=== PATIENT | female | born 1990 | race Caucasian/White ===

== ENCOUNTER 2016-11-20 17:02 | Emergency (ER) | payer BC, OTHER ==
[~2016-11-20] VITALS: Ht 154.9 cm; Wt 81.1 kg
[~2016-11-20 17:02] MED LIST: ACET-1256 PO; ADVIN25/60 INH; AZIT250T PO; CYM30 PO; DICY10CA12 PO; DSY50 PO; DULO60CA44 PO; HYDR5TAB57 PO; KLN1X PO; LEVE500T PO; LEVO75TA5 PO; NRN600 PO; OXYC1TAB3 PO; PRENTAB26 PO
[2016-11-20 17:07] VITALS: Ht 154.9 cm; Wt 81.1 kg
[2016-11-20] MEDS ORDERED: KETOROLAC TROMETHAMINE 30 MG/ML VIAL IV STA (17:29)
[2016-11-20] MEDS ORDERED: TRAM-10 PO (17:35)
[2016-11-20 18:10] LABS: BASO % 0.4 %; BASO ABS # 0.04 K/uL (0-0.2); COMPLETE YES; EOS % 1.3 %; HEMATOCRIT 44.3 % (37-47); IG% 0.2 %; LYMPH % 35.1 %; MEAN CELL VOLUME 84.2 fL (80-100); MEAN CORPUSCULAR HEMOGLOBIN 29.8 pg (25-34); MEAN CORPUSCULAR HGB CONC 35.4 g/dl (32-36); MEAN PLATELET VOLUME 11.6 fL (7.4-10.4); MONO % 3.8 %; NEUT % 59.2 %; PLATELET COUNT 300 K/uL (130-400); RED BLOOD COUNT 5.26 M/uL (4.2-5.4); WHITE BLOOD COUNT 9.68 K/uL (4.8-10.8)
[2016-11-20 18:13] LABS: URINE APPEARANCE CLOUDY (CLEAR); URINE BILIRUBIN NEG (NEG); URINE COLOR YELLOW; URINE EPITHELIAL CELL AUTO >30 /lpf (0-5); URINE NITRITE NEG (NEG); URINE PH 6.5 (4.5-7.5); URINE SPECIFIC GRAVITY 1.022 (1.000-1.030); UROBILINOGEN NEG (NEG); ZZUR CULT IF INDIC CLEAN CATCH NO
[2016-11-20 18:14] LABS: MANUAL MICROSCOPIC REQUIRED? NO; REVIEW REQ? YES
[2016-11-20 18:31] LABS: ALB/GLOB RATIO 1.1 (0.9-2); BUN/CREATININE RATIO 8.8 (10-20); CALCIUM 8.7 mg/dl (8.5-10.1); CREATININE 0.77 mg/dl (0.60-1.20); POTASSIUM 4.3 mmol/L (3.5-5.1)
--- NOTE | 2016-11-20 18:54 | DIAGNOSTIC IMAGING REPORT ---
EXAMINATION: PELVIC ULTRASOUND CLINICAL HISTORY: pelvic pain, hx of ovarian cysts COMPARISON STUDY: 03/21/2016 FINDINGS: The uterus measured 5.3 cm. The endometrial stripe measured 7 mm. The right ovary measured 3.0 cm. 1.8 cm complex right ovarian cyst.. The left ovary measured 2.6 cm maximum dimension. Normal vascular flow.. There is no ultrasonographic evidence of ovarian torsion. It should be noted that ovarian torsion can be present with normal Doppler ultrasonographic findings. There was no evidence of pathologic free pelvic fluid. IMPRESSION: 1.8 cm complex right ovarian cyst. Otherwise negative study Electronically signed by: Clemente Arriaga M.D. 11/20/2016 6:53 PM Dictated Date/Time: 11/20/2016 6:51 PM
[2016-11-20] MEDS ORDERED: TYLENOL #3 HOME PACK PO ONE (19:30)
[2016-11-20] MEDS ORDERED: ACET-749 PO (19:39)
--- NOTE | 2016-11-20 19:41 | EMERGENCY ROOM VISIT NOTE ---
History First contact with patient: 17:12 Chief Complaint: PELVIC PAIN Stated Complaint: PELVIC PAIN, LOWER BACK PAIN RADIATES TO THIGH History of Present Illness The patient is a 26 year old female who presents to the Emergency Room with complaints of pelvic pain for the past 3-4 days. The patient reports that she has pain in her right lower abdomen which radiates into the back and into her upper thighs. She states she has had symptoms like this before when she has had ovarian cysts. She has been taking ibuprofen for the pain without relief. She rates her discomfort a 7/10. She states the symptoms significantly worsened over the past day, prompting her to come here for evaluation. She denies any associated nausea/vomiting or urinary symptoms. She denies any vaginal discharge or bleeding. She states that she does not have regular menstrual periods, but did take a test 2 weeks ago and it was negative. She follows up with [facility] RESOURCE DIRECTOR. She denies any recent illness or fevers/chills. Review of Systems A complete 10-point Review of Systems was discussed with the patient, with pertinent positives and negatives listed in the History of Present Illness. All remaining Review of Systems questions can be considered negative unless otherwise specified. 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 (18) Leukocytosis, Unspecified (19) Meningitis (20) Opioid dependence (21) Panic (22) Pelvic pain (23) Vaginal bleeding (24) Vomiting Surgical Problems: (1) VERTICAL BORER (ventriculoperitoneal) shunt status Family History Diabetes mellitus FH: cancer FH: gallbladder disease FH: heart disease FH: lung disease Hypertension Kidney disease Kidney stones Seizures Social History Smoking Status: Current Every Day Smoker Alcohol Use: none Drug Use: none Marital Status: in relationship Housing Status: lives with family Occupation Status: unemployed Current/Historical Medications Scheduled Duloxetine HCl (Duloxetine HCl), 30 MG PO DAILY Duloxetine Hcl (Cymbalta), 60 MG PO DAILY Fluticasone Prop/Salmeterol (Advair Diskus 250/50 60 Dose), 1 PUFFS INH BID Gabapentin (Gabapentin), 600 MG PO TID Hydrocortisone (Cortef), 5 MG PO TID Levetiractam (Levetiracetam), 500 MG PO BID Levothyroxine Sodium (Levothyroxine Sodium), 75 MCG PO DAILY Multivit/Min/Iron/Fol Ac/Pren ( Vitamin), 1 TAB PO DAILY Trazodone HCl (Trazodone HCl), 50-100 MG PO HS Scheduled PRN Acetaminophen (Tylenol), 1,000 MG PO Q6H PRN for Pain Acetaminophen/Codeine (Tylenol W/Codeine #3), 1-2 TABS PO Q6H PRN for Pain Clonazepam (Clonazepam), 1 MG PO DAILY PRN for Anxiety Dicyclomine Hcl (Dicyclomine Hcl), 10 MG PO BID PRN for IBS Tramadol (Ultram), 50-100 MG PO Q6 PRN for Pain Allergies Coded Allergies: Lactose (Verified Adverse Reaction, Intermediate, LACTOSE INTOLERANT, 07/23) Morphine (Verified Adverse Reaction, Unknown, "mean" and "irriatible", 07/23/16) Tramadol (Verified Adverse Reaction, Unknown, hx of seizures, told by neuologist to avoid, 07/23/16) Uncoded Allergies: DERMABOND (Allergy, Mild, BURNT SKIN, 07/17/15) Physical Exam Vital Signs Date Time Temp Pulse Resp B/P Pulse Ox O2 Delivery O2 Flow Rate FiO2 11/20/16 19:50 36.8 81 18 128/79 98 11/20/16 19:29 81 18 128/79 98 Room Air 11/20/16 17:07 36.8 86 18 135/80 98 Room Air Physical Exam VITALS: Vitals are noted on the nurse's note and reviewed by myself. Vital signs stable. GENERAL: This is a 26-year-old female, in no acute distress, nondiaphoretic, well-developed well-nourished. SKIN: Capillary reflex less than 2 seconds. HEENT: Normocephalic. PERRLA. EOMI. Nares patent. Mucous membranes moist. Neck is supple without nuchal rigidity. HEART: Regular rate and rhythm without murmurs gallops or rubs. LUNGS: Clear to auscultation bilaterally without wheezes, rales or rhonchi. No retractions or accessory muscle use. ABDOMEN: Positive bowel sounds x 4. Moderate tenderness to palpation over the right lower quadrant and suprapubic region. PELVIC: External genitalia unremarkable. There is a small amount of chunky white discharge within the vaginal vault. This does have a foul odor. NEURO: Patient was alert and oriented to person place and time. Medical Decision & Procedures ER Provider Diagnostic Interpretation: EXAMINATION: PELVIC ULTRASOUND CLINICAL HISTORY: pelvic pain, hx of ovarian cysts COMPARISON STUDY: 03/21/2016 FINDINGS: The uterus measured 5.3 cm. The endometrial stripe measured 7 mm. The right ovary measured 3.0 cm. 1.8 cm complex right ovarian cyst.. The left ovary measured 2.6 cm maximum dimension. Normal vascular flow.. There is no ultrasonographic evidence of ovarian torsion. It should be noted that ovarian torsion can be present with normal Doppler ultrasonographic findings. There was no evidence of pathologic free pelvic fluid. IMPRESSION: 1.8 cm complex right ovarian cyst. Otherwise negative study Laboratory Results 11/20/16 18:00 Red Blood Count 5.26, Mean Corpuscular Volume 84.2, Mean Corpuscular Hemoglobin 29.8, Mean Corpuscular Hemoglobin Concent 35.4, Mean Platelet Volume 11.6, Neutrophils (%) (Auto) 59.2, Lymphocytes (%) (Auto) 35.1, Monocytes (%) (Auto) 3.8, Eosinophils (%) (Auto) 1.3, Basophils (%) (Auto) 0.4, Neutrophils # (Auto) 5.72, Lymphocytes # (Auto) 3.40, Monocytes # (Auto) 0.37, Eosinophils # (Auto) 0.13, Basophils # (Auto) 0.04 11/20/16 18:00 Test 11/20/16 17:55 11/20/16 18:00 Urine Color YELLOW Urine Appearance CLOUDY (CLEAR) Urine pH 6.5 (4.5-7.5) Urine Specific [place] 1.022 (1.000-1.030) Urine Protein NEG (NEG) Urine Glucose (UA) NEG (NEG) Urine Ketones NEG (NEG) Urine Occult Blood NEG (NEG) Urine Nitrite NEG (NEG) Urine Bilirubin NEG (NEG) Urine Urobilinogen NEG (NEG) Urine Leukocyte Esterase NEG (NEG) Urine WBC (Auto) 1-5 /hpf (0-5) Urine RBC (Auto) 0-4 /hpf (0-4) Urine Hyaline Casts (Auto) 1-5 /lpf (0-5) Urine Epithelial Cells (Auto) >30 /lpf (0-5) Urine Bacteria (Auto) NEG (NEG) Urine Crystals CALCIUM OXALATE (NONE Urine Test NEG (NEG) White Blood Count 9.68 K/uL (4.8-10.8) Red Blood Count 5.26 M/uL (4.2-5.4) Hemoglobin 15.7 g/dL (12.0-16.0) Hematocrit 44.3 % (37-47) Mean Corpuscular Volume 84.2 fL (80-100) Mean Corpuscular Hemoglobin 29.8 pg (25-34) Mean Corpuscular Hemoglobin Concent 35.4 g/dl (32-36) Platelet Count 300 K/uL (130-400) Mean Platelet Volume 11.6 fL (7.4-10.4) Neutrophils (%) (Auto) 59.2 % Lymphocytes (%) (Auto) 35.1 % Monocytes (%) (Auto) 3.8 % Eosinophils (%) (Auto) 1.3 % Basophils (%) (Auto) 0.4 % Neutrophils # (Auto) 5.72 K/uL (1.4-6.5) Lymphocytes # (Auto) 3.40 K/uL (1.2-3.4) Monocytes # (Auto) 0.37 K/uL (0.11-0.59) Eosinophils # (Auto) 0.13 K/uL (0-0.5) Basophils # (Auto) 0.04 K/uL (0-0.2) RDW Standard Deviation 37.5 fL (36.4-46.3) RDW Coefficient of Variation 12.3 % (11.5-14.5) Immature Granulocyte % (Auto) 0.2 % Immature Granulocyte # (Auto) 0.02 K/uL (0.00-0.02) Anion Gap 11.0 mmol/L (3-11) Est Creatinine Clear Calc Drug Dose 108.7 ml/min Estimated GFR () 125.3 Estimated GFR (Non- 108.1 BUN/Creatinine Ratio 8.8 (10-20) Calcium Level 8.7 mg/dl (8.5-10.1) Total Bilirubin 0.2 mg/dl (0.2-1) Aspartate Amino Transf (AST/SGOT) 60 U/L (15-37) Alanine Aminotransferase (ALT/SGPT) 107 U/L (12-78) Alkaline Phosphatase 87 U/L (45-117) Total Protein 8.0 gm/dl (6.4-8.2) Albumin 4.2 gm/dl (3.4-5.0) Globulin 3.8 gm/dl (2.5-4.0) Albumin/Globulin Ratio 1.1 (0.9-2) Chemistry Specimen Hemolysis Medications Administered Medications (Trade) Dose Ordered Sig/Wili Route Start Time Stop Time Status Last Admin Dose Admin Ketorolac Tromethamine (Toradol Inj) 30 mg NOW STAT IV 11/20/16 17:29 11/20/16 17:30 DC 11/20/16 18:07 30 MG Acetaminophen/ Codeine Phosphate (TYLENOL W/ CODEINE #3 Home Pack) 1 homepack UD ONCE PO 11/20/16 19:30 11/20/16 19:31 DC 11/20/16 19:33 1 HOMEPACK Medical Decision Differential diagnosis includes ovarian cyst, ovarian torsion, ectopic , PID, appendicitis, gastroenteritis, among others. The patient was evaluated as above. Labs were drawn and IV access was obtained. Imaging studies were performed and read by radiology as above. The patient was medicated with 30 mg Toradol IV. The patient was reassessed multiple times during their stay in the emergency department and remained in stable condition. The patient is a 26-year-old female who presents today complaining of right- sided pelvic pain. Labs revealed no leukocytosis, anemia or concerning electrolyte abnormalities. Urinalysis was not suggestive of infection. Urine was negative. Pelvic ultrasound did show a complex right ovarian cyst , likely causing the patient's discomfort. Pelvic exam was not suggestive of PID. However, there was some foul-smelling discharge was will be sent for culture. The patient was instructed to follow-up closely with her RESOURCE DIRECTOR for further treatment of this issue. I did agree to give her a short course of Tylenol with Codeine, given the objective finding of an ovarian cyst on ultrasound. The patient will return for any worsening or concerning symptoms. Based on the patient's presentation, lab results, and imaging studies, I feel the patient is stable for outpatient treatment. Discharge instructions were reviewed with the patient. The patient verbalized understanding of my assessment and treatment plan and was discharged home in good condition. [place] Drug Monitoring Program Search Results: patient reviewed within database Impression Primary Impression: Right ovarian cyst Departure Information Dispostion Home / Self-Care Condition GOOD Prescriptions Acetaminophen/Codeine (Tylenol W/Codeine #3) 300 Mg/30 Mg Tab 1-2 TABS PO Q6H Y for Pain, #10 TAB For Initial Treatment Prov: Kate Carrasco .JACOB 11/20/16 Referrals Ho Benedict M.D. (PCP) Patient Instructions My [facility] Additional Instructions You have been treated in the Emergency Department for your ovarian cyst. Laboratory results and imaging studies have ruled out any emergent causes for your abdominal pain which would warrant admission or surgery. You have been prescribed Tylenol with Codeine to be used for pain control. This is a narcotic medication. You cannot drive or consume alcohol while on this medicine. This medicine should only be used for pain that cannot be controlled with [id number] pain medicines. For pain control, you can use the following [id number] medicines (if >12 yo): - Regular strength (325mg/tab) Tylenol (acetaminophen) 2 tabs every 4-6 hours as needed. Do not exceed 12 tablets in a 24 hour period. Avoid taking more than 4 grams (4000 mg) of Tylenol per day. This includes any other sources of acetaminophen you may take on a regular basis. - Regular strength (200 mg/tab) Advil (ibuprofen) 1-2 tabs every 4-6 hours as needed. Do not exceed a dose of 3200 mg per day. Drink plenty of water and stay well hydrated. Follow up with your RESOURCE DIRECTOR within 1-2 weeks. Return to the emergency department if your symptoms persist despite treatment plan outlined above or you develop any new/concerning symptoms.
[2016-11-20 19:50] VITALS: BP 128/79; PULSE 81; TEMP 36.8; O2SAT 98
--- NOTE | 2016-11-23 15:44 | Pharmacy Progress Note ---
ED Pharmacist Culture FollowUp Date of Service: Nov 23, 2016. Patient's genital culture grew gardnerella vaginalis. Typically such cultures are not reliable for the diagnosis of BV, however the patient did c/o pelvic pain, and there was chunky white vaginal discharge and a foul odor present on the pelvic exam. Reviewed case with Jose Carlos PAC, and the decision was made to prescribe Flagyl 500mg PO BID x 7 days to treat presumed BV. Preg test negative. I contacted the patient and made her aware of the plan. She asked Rx be called to [facility] ([phone]); this has been done per her wishes.
== END 2016-11-20 19:51 | disposition home or self-care (01) ==
LOC: C.EDB 17:03 → C.EDC 19:51
DX: N83.201 Unspecified ovarian cyst, right side (principal); F41.9 Anxiety disorder, unspecified; G91.9 Hydrocephalus, unspecified; E23.0 Hypopituitarism; D72.829 Elevated white blood cell count, unspecified; F11.20 Opioid dependence, uncomplicated; Z86.61 Personal history of infections of the central nervous system; Z98.2 Presence of cerebrospinal fluid drainage device; F17.210 Nicotine dependence, cigarettes, uncomplicated; Z79.899 Other long term (current) drug therapy

== ENCOUNTER 2017-01-27 00:18 | Emergency (ER) | payer BC, OTHER ==
[~2017-01-27] VITALS: Ht 154.9 cm; Wt 82.6 kg
[~2017-01-27 00:18] MED LIST changes: +ACET-749 PO; -AZIT250T PO; -OXYC1TAB3 PO; +TRAM-10 PO
[2017-01-27 00:22] VITALS: TEMP 37.3; Ht 154.9 cm; Wt 82.6 kg
[2017-01-27] MEDS ORDERED: ALBUT/IPRATROP 3MG/0.5MG NEB 3 ML VIAL INH STA ×2 (00:32→01:35)
[2017-01-27] MEDS ORDERED: ALBUTEROL HFA 8 GM INHALER INH STA (01:35)
[2017-01-27 01:38] VITALS: BP 140/94; PULSE 111; O2SAT 95
--- NOTE | 2017-01-27 01:44 | EMERGENCY ROOM VISIT NOTE ---
History First contact with patient: 00:26 Chief Complaint: FLU LIKE SX Stated Complaint: FLU?,COUGH,WHEEZING,ACHEY,FEVER History of Present Illness The patient is a 26 year old female who presents to the Emergency Room with complaints of cough, congestion, wheezing and fever and chills for the past 3 days. Patient denies neck stiffness, sore throat, earache, chest pain, abdominal pain, vomiting, diarrhea. She is tolerate by mouth fluids and food. Review of Systems See HPI for pertinent positives & negatives. A total of 10 systems reviewed and were otherwise negative. 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 (18) Leukocytosis, Unspecified (19) Meningitis (20) Opioid dependence (21) Panic (22) Pelvic pain (23) Vaginal bleeding (24) Vomiting Surgical Problems: (1) PRODUCE MANAGER (ventriculoperitoneal) shunt status Family History Diabetes mellitus FH: cancer FH: gallbladder disease FH: heart disease FH: lung disease Hypertension Kidney disease Kidney stones Seizures Social History Smoking Status: Former Smoker Alcohol Use: none Drug Use: none Marital Status: in relationship Housing Status: lives with family Occupation Status: unemployed Current/Historical Medications Scheduled Duloxetine HCl (Duloxetine HCl), 30 MG PO DAILY Duloxetine Hcl (Cymbalta), 60 MG PO DAILY Fluticasone Prop/Salmeterol (Advair Diskus 250/50 60 Dose), 1 PUFFS INH BID Gabapentin (Gabapentin), 600 MG PO TID Hydrocortisone (Cortef), 5 MG PO TID Levetiractam (Levetiracetam), 500 MG PO BID Levothyroxine Sodium (Levothyroxine Sodium), 75 MCG PO DAILY Multivit/Min/Iron/Fol Ac/Pren ( Vitamin), 1 TAB PO DAILY Trazodone HCl (Trazodone HCl), 50-100 MG PO HS Scheduled PRN Acetaminophen (Tylenol), 1,000 MG PO Q6H PRN for Pain Acetaminophen/Codeine (Tylenol W/Codeine #3), 1-2 TABS PO Q6H PRN for Pain Clonazepam (Clonazepam), 1 MG PO DAILY PRN for Anxiety Dicyclomine Hcl (Dicyclomine Hcl), 10 MG PO BID PRN for IBS Tramadol (Ultram), 50-100 MG PO Q6 PRN for Pain Allergies Coded Allergies: Lactose (Verified Adverse Reaction, Intermediate, LACTOSE INTOLERANT, 07/23) Morphine (Verified Adverse Reaction, Unknown, "mean" and "irriatible", 07/23/16) Tramadol (Verified Adverse Reaction, Unknown, hx of seizures, told by neuologist to avoid, 07/23/16) Uncoded Allergies: DERMABOND (Allergy, Mild, BURNT SKIN, 07/17/15) Physical Exam Vital Signs Date Time Temp Pulse Resp B/P Pulse Ox O2 Delivery O2 Flow Rate FiO2 01/27/17 01:38 111 18 140/94 95 Room Air 01/27/17 00:22 37.3 111 20 149/105 95 Room Air Physical Exam VITALS: Vitals are noted on the nurse's note and reviewed by myself. Vital signs stable. GENERAL: Pleasant female coughing, in no acute distress, nondiaphoretic, well- developed well-nourished. SKIN: The skin was without rashes, erythema, edema, or bruising. There is no tenting of the skin. Capillary reflex less than 2 seconds. HEAD: Normocephalic atraumatic. EARS: External auditory canals clear, tympanic membranes pearly soares without erythema or effusion bilaterally. EYES: Pupils equal round and reactive to light and accommodation. Conjunctivae without injection, sclerae without icterus. Extraocular movements intact. NOSE: Patent, turbinates without inflammation or discharge. No sinus tenderness. MOUTH: Mucous membranes moist. Pharynx without erythema or exudate. Uvula midline. Airway patent. Tongue does not deviate. NECK: Supple without nuchal rigidity. No lymphadenopathy. No thyromegaly. Cervical spine is nontender. No JVD. HEART: Regular rate and rhythm without murmurs gallops or rubs. LUNGS: Mild diffuse end expiratory wheezes, without rales or rhonchi. No dullness to percussion. No retractions or accessory muscle use. ABDOMEN: Positive bowel sounds x 4. Normal tympanic percussion. Soft, nontender, without masses or organomegaly. Daniels sign negative. No guarding or rebound tenderness. MUSCULOSKELETAL: No muscle atrophy, erythema, or edema noted. NEURO: Patient was alert and oriented to person place and time. Normal sensation to light and sharp touch. No focal neurological deficits. Medical Decision & Procedures Laboratory Results Test 01/27/17 00:40 Influenza Type A Antigen Neg for Influ A (NEG) Influenza Type B Antigen Neg for Influ B (NEG) Medications Administered Medications (Trade) Dose Ordered Sig/Wili Route Start Time Stop Time Status Last Admin Dose Admin Albuterol/ Ipratropium (Duoneb) 3 ml NOW STAT INH 01/27/17 00:32 01/27/17 00:33 DC 01/27/17 00:40 3 ML Prednisone (PredniSONE TAB) 60 mg NOW STAT PO 01/27/17 00:32 01/27/17 00:33 DC 01/27/17 00:40 60 MG ED Course Prior records/ancillary studies reviewed. Triage Nursing notes reviewed. The patient's history was concerning for respiratory difficulties. Differential diagnosis: Etiologies such as infections, reactive airway disease, pneumonia, pneumothorax , COPD, CHF, cardiac ischemia, pulmonary embolism, musculoskeletal, gastrointestinal, as well as others were entertained. Physical examination: As above. ER treatment provided: Nebulizer, steroids On reassessment the patient felt better. Diagnostic interpretation by me: The labs revealed neg flu Imaging studies: Chest x-ray no acute consolidation or pneumothorax or free air per my interpretation This appears to be consistent with asthmatic bronchitis. Patient was well- appearing. No signs of pneumonia. She is placed on steroids for her asthma exacerbation. She is advised to use an inhaler for cough and to take the medications as directed. She is advised to follow-up family care in a few days or here in the ER sooner for high fevers, lethargy, difficulty breathing, worsening signs or symptoms or as needed. By the evaluation outlined above emergent etiologies such as CHF, cardiac ischemia, pulmonary embolism, pneumonia, pneumothorax, musculoskeletal, serious bacterial infections, as well as others were deemed relatively unlikely. The pt informed about the findings as listed above. All questions were answered and pleased with the treatment. Return instructions were outlined and the patient was discharged in stable condition. Outpatient prescription management: prednisone Referral: The patient was referred back to their primary care physician for follow-up in 2 to 3 days for a recheck of the current condition. Medical Decision As above Impression Primary Impression: Asthmatic bronchitis Departure Information Dispostion Home / Self-Care Condition GOOD Referrals Ho Benedict M.D. (PCP) Patient Instructions My [facility] Additional Instructions Albuterol Inhaler: Take 2 puffs four times daily for five days, then as needed. Prednisone 50mg: Once daily until the prescription is finished. It is best to take this earlier in the day as some patients note occasional difficulty falling asleep when taken in the late evening. Acetaminophen(Tylenol) may be used for fever or pain. Use 1000mg every six hours as needed. Avoid using more than 3000mg in a 24 hour period. (AND/OR) Ibuprofen(Motrin, Advil) may be used for fever or pain. Use 600mg every six hours as needed. Take with food. Avoid using more than 2400mg in a 24 hour period. Do not use 2400mg per day for more than three consecutive days without physician direction. Prolonged inappropriate use can lead to stomach upset or ulcers. Rest and drink plenty of fluids. Avoid smoke/smoking, fumes, dust, or any triggers in the past that may have affected your breathing. Continue current medications. Return to the ER for chest pain, difficulty breathing, fevers, vomiting, worsening of your condition, or as needed. Follow up with your primary physician this week for a recheck of your current condition.
[2017-01-27] MEDS ORDERED: PRED50TA PO (01:45)
[2017-01-27 02:44] LABS: INFLUENZA A PCR Neg for Influ A (NEG); INFLUENZA B PCR Neg for Influ B (NEG)
--- NOTE | 2017-01-27 06:44 | DIAGNOSTIC IMAGING REPORT ---
CHEST 2 VIEWS ROUTINE CLINICAL HISTORY: cough/fever dyspnea COMPARISON STUDY: 04/08/2016 FINDINGS: Small parenchymal infiltrate medial left base. Lungs otherwise appear clear. Diaphragms smooth. IMPRESSION: Small parenchymal infiltrate medial left base. Electronically signed by: Clemente Arriaga M.D. 01/27/2017 6:42 AM Dictated Date/Time: 01/27/2017 6:42 AM
== END 2017-01-27 02:00 | disposition home or self-care (01) ==
LOC: C.EDB 00:19 → C.EDA 02:00
DX: J45.909 Unspecified asthma, uncomplicated (principal); F41.9 Anxiety disorder, unspecified; F43.9 Reaction to severe stress, unspecified; Z87.828 Personal history of other (healed) physical injury and trauma; Z86.011 Personal history of benign neoplasm of the brain; G91.9 Hydrocephalus, unspecified; Z98.2 Presence of cerebrospinal fluid drainage device; Z87.440 Personal history of urinary (tract) infections; Z87.820 Personal history of traumatic brain injury; Z87.891 Personal history of nicotine dependence; Z79.899 Other long term (current) drug therapy; Z88.5 Allergy status to narcotic agent; Z88.8 Allergy status to other drugs, medicaments and biological substances; Z91.011 Allergy to milk products; Z83.3 Family history of diabetes mellitus; Z80.9 Family history of malignant neoplasm, unspecified; Z83.79 Family history of other diseases of the digestive system; Z82.49 Family history of ischemic heart disease and other diseases of the circulatory system; Z84.1 Family history of disorders of kidney and ureter; Z82.0 Family history of epilepsy and other diseases of the nervous system

== ENCOUNTER 2017-04-19 12:23 | Emergency (ER) | payer BC, OTHER ==
[~2017-04-19] VITALS: Ht 154.9 cm; Wt 81.3 kg
[~2017-04-19 12:23] MED LIST changes: -ACET-749 PO
[2017-04-19 12:29] VITALS: TEMP 36.7; Ht 154.9 cm; Wt 81.3 kg
[2017-04-19] MEDS ORDERED: KETOROLAC TROMETHAMINE 30 MG/ML VIAL IV STA (12:38)
[2017-04-19] MEDS ORDERED: SODIUM CHLORIDE 0.9% 1000ML 1,000 ML IV STA (12:38)
[2017-04-19] MEDS ORDERED: IBUP-1428 PO (13:11)
[2017-04-19 13:24] LABS: URINE APPEARANCE CLOUDY (CLEAR); URINE BILIRUBIN NEG (NEG); URINE COLOR YELLOW; URINE EPITHELIAL CELL AUTO >30 /lpf (0-5); URINE NITRITE NEG (NEG); URINE PH 5.5 (4.5-7.5); URINE SPECIFIC GRAVITY 1.012 (1.000-1.030); UROBILINOGEN NEG (NEG); ZZUR CULT IF INDIC CLEAN CATCH NO
[2017-04-19 13:29] LABS: MANUAL MICROSCOPIC REQUIRED? NO; REVIEW REQ? YES
[2017-04-19 13:47] LABS: PREG INTERNAL NEGATIVE QC NEG CLEAR BACKGROUND; PREG INTERNAL POSITIVE QC POS CONTROL LINE
[2017-04-19 13:55] LABS: ALT/SGPT 32 U/L (12-78); BLOOD UREA NITROGEN 9 mg/dl (7-18); BUN/CREATININE RATIO 12.5 (10-20); CALCIUM 9.1 mg/dl (8.5-10.1); CARBON DIOXIDE 22 mmol/L (21-32); CHLORIDE 109 mmol/L (98-107); CREATININE 0.71 mg/dl (0.60-1.20); GLUCOSE 91 mg/dl (70-99); POTASSIUM 4.1 mmol/L (3.5-5.1); SODIUM 137 mmol/L (136-145)
[2017-04-19 13:58] LABS: ALKALINE PHOSPHATASE 69 U/L (45-117); AST/SGOT 16 U/L (15-37)
[2017-04-19] MEDS ORDERED: OPTIRAY 320 IV PRN (14:30)
[2017-04-19] MEDS ORDERED: HYDROmorphone INJ 0.5 MG/0.5 ML SYR IV STA (14:35)
--- NOTE | 2017-04-19 14:38 | DIAGNOSTIC IMAGING REPORT ---
CT SCAN OF THE ABDOMEN AND PELVIS WITH IV CONTRAST CLINICAL HISTORY: Right lower quadrant abdominal pain. COMPARISON STUDY: Abdominal CT dated 03/24/2016. TECHNIQUE: Following the IV administration of 90 cc of Optiray 320, CT scan of the abdomen and pelvis is performed from the lung bases to the proximal femora. Images are reviewed in the axial, sagittal, and coronal planes. IV contrast was administered without complication. Automated dose control exposure was utilized. CT DOSE: 845.02 mGycm FINDINGS: Lung bases: The heart is normal in size and without pericardial effusion. A 3 mm pleural-based nodule in the left lower lobe as seen on image #36. This is doubtful significance in this age group. The lung bases are otherwise clear. Liver: The contrast-enhanced liver is normal in size, contour, and attenuation. There is no intrahepatic biliary ductal dilatation. The hepatic veins and portal veins are patent. Gallbladder: Surgically absent noting clips in the gallbladder fossa. Spleen: Normal in size and attenuation. Pancreas: Unremarkable. Adrenal glands: Unremarkable. Kidneys: The contrast enhanced kidneys are normal in size and without hydronephrosis. The kidneys enhance symmetrically. Abdominal vasculature: The abdominal aorta is normal in course and caliber. Bowel: The small bowel and colon are normal in course and caliber. The appendix is well-visualized and normal. Peritoneum: A ventriculoperitoneal shunt catheter traverses the right abdominal wall at the tip is coiled in the right pelvis. There is no intraperitoneal free air. No abdominal ascites is seen. Lymphadenopathy: None. Pelvic viscera: The bladder, uterus, and adnexa are normal as visualized. There are bilateral ovarian follicles. There is a small volume of free fluid in the pelvis. Skeletal structures: No lytic or blastic lesions are seen. There is mild spinal scoliosis. IMPRESSION: 1. There are no acute infectious or inflammatory findings in the abdomen or pelvis. 2. A ventricular shunt catheter is noted with the tip coiled in the right lower quadrant. 3. There is a small volume of free fluid in the pelvis. This may be within physiologic limits or could be related to the shunt catheter. Electronically signed by: Deacon Penn M.D. 04/19/2017 2:37 PM Dictated Date/Time: 04/19/2017 2:26 PM
[2017-04-19 15:54] LABS: HEMATOCRIT 38.5 % (37-47); MEAN CELL VOLUME 82.8 fL (80-100); MEAN CORPUSCULAR HEMOGLOBIN 29.2 pg (25-34); MEAN CORPUSCULAR HGB CONC 35.3 g/dl (32-36); RED BLOOD COUNT 4.65 M/uL (4.2-5.4); WHITE BLOOD COUNT 13.04 K/uL (4.8-10.8)
[2017-04-19 16:01] LABS: PLATELET COUNT 319 K/uL (130-400)
[2017-04-19 16:21] LABS: BASO % 0.5 %; BASO ABS # 0.07 K/uL (0-0.2); COMPLETE YES; EOS % 0.8 %; IG% 0.9 %; LYMPH ABS # 5.08 K/uL (1.2-3.4); MONO % 4.4 %; NEUT % 54.4 %
[2017-04-19 16:35] VITALS: BP 126/86; PULSE 85; O2SAT 99
--- NOTE | 2017-04-19 19:43 | EMERGENCY ROOM VISIT NOTE ---
History Report prepared by Samyibnelly: Natan Rogers Under the Supervision of: Dr. Vick Rincon D.O. First contact with patient: 12:32 Chief Complaint: ABDOMINAL PAIN Stated Complaint: SEVERE LOWER ABD. PAIN, PAIN IN BACK History of Present Illness The patient is a 26 year old female with a history of ovarian cysts who presents to the Emergency Room with complaints of persistent lower abdominal pain since yesterday. The pain radiates towards her lower back bilaterally, worse on the right side than the left. The pain feels similar to past ovarian cysts. The pain improves with Ibuprofen use, and she denies any worsening factors. She denies urinary symptoms or abnormal vaginal bleeding or discharge. Her last bowel movement was today which was normal. 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 The patient had a brain tumor for which she has had surgery. Her last menstrual period was two months ago. She follows up with Endocrinology. The patient and her fiance have been trying to get . Her most recent test was negative. The patient has history of hydrocephalus, epilepsy, and meningitis. She is s/p cholecystectomy but still has her appendix. Patient denies headache, change in vision, fevers, chest pain, shortness of breath, nausea, vomiting, diarrhea, pain with urination, and melena. Source of History: patient Onset: yesterday Position: abdomen (lower) Timing: other (persistent) Modifying Factors (Relieving): ibuprofen Associated Symptoms: + back pain (radiates to), No fevers, No headache, No chest pain, No SOB, No nausea, No vomiting, No melena, No diarrhea, No urinary symptoms Review of Systems See HPI for pertinent positives & negatives. A total of 10 systems reviewed and were otherwise negative. 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 (18) Leukocytosis, Unspecified (19) Meningitis (20) Opioid dependence (21) Panic (22) Pelvic pain (23) Vaginal bleeding (24) Vomiting Surgical Problems: (1) ANIMAL RIDE [employer]ENDANT (ventriculoperitoneal) shunt status Family History Diabetes mellitus FH: cancer FH: gallbladder disease FH: heart disease FH: lung disease Hypertension Kidney disease Kidney stones Seizures Social History Smoking Status: Current Every Day Smoker Alcohol Use: none Drug Use: none Marital Status: in relationship Housing Status: lives with family Occupation Status: unemployed Current/Historical Medications Scheduled Duloxetine HCl (Duloxetine HCl), 30 MG PO DAILY Duloxetine Hcl (Cymbalta), 60 MG PO DAILY Fluticasone Prop/Salmeterol (Advair Diskus 250/50 60 Dose), 1 PUFFS INH BID Gabapentin (Gabapentin), 600 MG PO TID Hydrocortisone (Cortef), 5 MG PO TID Ibuprofen (Motrin), 800 MG PO Q8H Levetiractam (Levetiracetam), 500 MG PO BID Levothyroxine Sodium (Levothyroxine Sodium), 75 MCG PO DAILY Multivit/Min/Iron/Fol Ac/Pren ( Vitamin), 1 TAB PO DAILY Trazodone HCl (Trazodone HCl), 50-100 MG PO HS Scheduled PRN Clonazepam (Clonazepam), 1 MG PO DAILY PRN for Anxiety Dicyclomine Hcl (Dicyclomine Hcl), 10 MG PO BID PRN for IBS Tramadol (Ultram), 50-100 MG PO Q6 PRN for Pain Allergies Coded Allergies: Lactose (Verified Adverse Reaction, Intermediate, LACTOSE INTOLERANT, 07/23) Morphine (Verified Adverse Reaction, Unknown, "mean" and "irriatible", 07/23/16) Tramadol (Verified Adverse Reaction, Unknown, hx of seizures, told by neuologist to avoid, 07/23/16) Uncoded Allergies: DERMABOND (Allergy, Mild, BURNT SKIN, 07/17/15) Physical Exam Vital Signs Date Time Temp Pulse Resp B/P (MAP) Pulse Ox O2 Delivery O2 Flow Rate FiO2 04/19/17 16:35 85 18 126/86 99 04/19/17 14:39 97 18 117/83 95 Room Air 04/19/17 12:29 36.7 102 20 121/79 96 Room Air Physical Exam GENERAL: Sitting up in bed, disheveled, no acute distress, nontoxic. EYE EXAM: normal conjunctiva. OROPHARYNX: no exudate, no erythema, lips, buccal mucosa, and tongue normal and mucous membranes are moist NECK: supple, no nuchal rigidity, no adenopathy, non-tender LUNGS: Clear to auscultation. Normal chest wall mechanics HEART: no murmurs, S1 normal and S2 normal ABDOMEN: abdomen soft, minimal tenderness to palpation in the right lower quadrant, normo-active bowel sounds, no masses, no rebound or guarding. BACK: Back is symmetrical on inspection and there is no deformity, no midline tenderness, no CVA tenderness. SKIN: no rashes and no bruising UPPER EXTREMITIES: upper extremities are grossly normal. LOWER EXTREMITIES: No pitting edema. NEURO EXAM: Normal sensorium, cranial nerves II-XII grossly intact, normal speech, no gross weakness of arms, no gross weakness of legs. Gross sensation intact. Medical Decision & Procedures ER Provider Diagnostic Interpretation: Radiology results as stated below per my review and the radiologist's interpretation: CT SCAN OF THE ABDOMEN AND PELVIS WITH IV CONTRAST CLINICAL HISTORY: Right lower quadrant abdominal pain. COMPARISON STUDY: Abdominal CT dated 03/24/2016. TECHNIQUE: Following the IV administration of 90 cc of Optiray 320, CT scan of the abdomen and pelvis is performed from the lung bases to the proximal femora. Images are reviewed in the axial, sagittal, and coronal planes. IV contrast was administered without complication. Automated dose control exposure was utilized. CT DOSE: 845.02 mGycm FINDINGS: Lung bases: The heart is normal in size and without pericardial effusion. A 3 mm pleural-based nodule in the left lower lobe as seen on image #36. This is doubtful significance in this age group. The lung bases are otherwise clear. Liver: The contrast-enhanced liver is normal in size, contour, and attenuation. There is no intrahepatic biliary ductal dilatation. The hepatic veins and portal veins are patent. Gallbladder: Surgically absent noting clips in the gallbladder fossa. Spleen: Normal in size and attenuation. Pancreas: Unremarkable. Adrenal glands: Unremarkable. Kidneys: The contrast enhanced kidneys are normal in size and without hydronephrosis. The kidneys enhance symmetrically. Abdominal vasculature: The abdominal aorta is normal in course and caliber. Bowel: The small bowel and colon are normal in course and caliber. The appendix is well-visualized and normal. Peritoneum: A ventriculoperitoneal shunt catheter traverses the right abdominal wall at the tip is coiled in the right pelvis. There is no intraperitoneal free air. No abdominal ascites is seen. Lymphadenopathy: None. Pelvic viscera: The bladder, uterus, and adnexa are normal as visualized. There are bilateral ovarian follicles. There is a small volume of free fluid in the pelvis. Skeletal structures: No lytic or blastic lesions are seen. There is mild spinal scoliosis. IMPRESSION: 1. There are no acute infectious or inflammatory findings in the abdomen or pelvis. 2. A ventricular shunt catheter is noted with the tip coiled in the right lower quadrant. 3. There is a small volume of free fluid in the pelvis. This may be within physiologic limits or could be related to the shunt catheter. Electronically signed by: Deacon Penn M.D. 04/19/2017 2:37 PM Dictated Date/Time: 04/19/2017 2:26 PM Laboratory Results 04/19/17 14:50 Red Blood Count 4.65, Mean Corpuscular Volume 82.8, Mean Corpuscular Hemoglobin 29.2, Mean Corpuscular Hemoglobin Concent 35.3, Mean Platelet Volume 11.0, Neutrophils (%) (Auto) 54.4, Lymphocytes (%) (Auto) 39.0, Monocytes (%) (Auto) 4.4, Eosinophils (%) (Auto) 0.8, Basophils (%) (Auto) 0.5, Neutrophils # (Auto) 7.08, Lymphocytes # (Auto) 5.08, Monocytes # (Auto) 0.58, Eosinophils # (Auto) 0.11, Basophils # (Auto) 0.07 04/19/17 13:24 Test 04/19/17 12:45 04/19/17 13:24 04/19/17 14:50 Urine Color YELLOW Urine Appearance CLOUDY (CLEAR) Urine pH 5.5 (4.5-7.5) Urine Specific [place] 1.012 (1.000-1.030) Urine Protein NEG (NEG) Urine Glucose (UA) NEG (NEG) Urine Ketones NEG (NEG) Urine Occult Blood NEG (NEG) Urine Nitrite NEG (NEG) Urine Bilirubin NEG (NEG) Urine Urobilinogen NEG (NEG) Urine Leukocyte Esterase NEG (NEG) Urine WBC (Auto) 1-5 /hpf (0-5) Urine RBC (Auto) 0-4 /hpf (0-4) Urine Hyaline Casts (Auto) 1-5 /lpf (0-5) Urine Epithelial Cells (Auto) >30 /lpf (0-5) Urine Bacteria (Auto) NEG (NEG) Urine Crystals (NONE PRSENT) Urine Test NEG (NEG) Anion Gap 6.0 mmol/L (3-11) Est Creatinine Clear Calc Drug Dose 118.0 ml/min Estimated GFR () 138.2 Estimated GFR (Non- 119.2 BUN/Creatinine Ratio 12.5 (10-20) Calcium Level 9.1 mg/dl (8.5-10.1) Total Bilirubin 0.2 mg/dl (0.2-1) Direct Bilirubin < 0.1 mg/dl (0-0.2) Aspartate Amino Transf (AST/SGOT) 16 U/L (15-37) Alanine Aminotransferase (ALT/SGPT) 32 U/L (12-78) Alkaline Phosphatase 69 U/L (45-117) Total Protein 7.4 gm/dl (6.4-8.2) Albumin 3.7 gm/dl (3.4-5.0) Lipase 151 U/L (73-393) White Blood Count 13.04 K/uL (4.8-10.8) Red Blood Count 4.65 M/uL (4.2-5.4) Hemoglobin 13.6 g/dL (12.0-16.0) Hematocrit 38.5 % (37-47) Mean Corpuscular Volume 82.8 fL (80-100) Mean Corpuscular Hemoglobin 29.2 pg (25-34) Mean Corpuscular Hemoglobin Concent 35.3 g/dl (32-36) Platelet Count 319 K/uL (130-400) Mean Platelet Volume 11.0 fL (7.4-10.4) Neutrophils (%) (Auto) 54.4 % Lymphocytes (%) (Auto) 39.0 % Monocytes (%) (Auto) 4.4 % Eosinophils (%) (Auto) 0.8 % Basophils (%) (Auto) 0.5 % Neutrophils # (Auto) 7.08 K/uL (1.4-6.5) Lymphocytes # (Auto) 5.08 K/uL (1.2-3.4) Monocytes # (Auto) 0.58 K/uL (0.11-0.59) Eosinophils # (Auto) 0.11 K/uL (0-0.5) Basophils # (Auto) 0.07 K/uL (0-0.2) RDW Standard Deviation 38.0 fL (36.4-46.3) RDW Coefficient of Variation 12.7 % (11.5-14.5) Immature Granulocyte % (Auto) 0.9 % Immature Granulocyte # (Auto) 0.12 K/uL (0.00-0.02) Laboratory results per my review. Medications Administered Medications (Trade) Dose Ordered Sig/Wili Route Start Time Stop Time Status Last Admin Dose Admin Sodium Chloride 1,000 ml @ 999 mls/hr Q1H1M STAT IV 04/19/17 12:38 04/19/17 13:38 DC 04/19/17 13:30 999 MLS/HR Ketorolac Tromethamine (Toradol Inj) 30 mg NOW STAT IV 04/19/17 12:38 04/19/17 12:41 DC 04/19/17 13:30 30 MG Hydromorphone HCl (Dilaudid Inj) 0.5 mg NOW STAT IV 04/19/17 14:35 04/19/17 14:36 DC 04/19/17 15:03 0.5 MG ED Course ED COURSE: Vital signs were reviewed and showed tachycardia. The patients medical record was reviewed The above diagnostic studies were performed and reviewed. ED treatments and interventions as stated above. 1235: The patient was evaluated in room C4. A complete history and physical examination was performed. 1238: Toradol 30 mg IV, NSS 1000 ml @ 999 mls/hr. 1400: Rechecked the patient. She had some improvement with Toradol. Going to CT scan now. 1435: Dilaudid 0.5 mg IV. 1605: Upon reevaluation, the patient is doing fine. She declined a pelvic examination. I discussed my findings with the patient and she understands and agrees with the treatment plan. Based on the patients age, coexisting illnesses, exam and lab findings the decision to treat as an outpatient was made. The patient remained stable while under my care. The patient appeared well at the time of discharge. Medical Decision Differential diagnoses includes but is not limited to gastritis, peptic ulcer disease, GERD, gallbladder disease, pancreatitis, small bowel obstruction, acute coronary syndrome, pericarditis, ischemic bowel, irritable bowel disease, irritable bowel syndrome, appendicitis, diverticulitis, malignancy, hernia, urinary tract infection, torsion, /ectopic (if female), perforation, trauma, infectious. Blood pressure screening: Patient was found to have normal blood pressure on screening and does not require follow-up. Medication Reconciliation: I attest that I have personally reviewed the patient' s current medication list. Patient is a 26-year-old female who presents the ER for right lower quadrant abdominal pain started yesterday. Abdominal exam is fairly benign. She has a history of ovarian cyst. No vaginal discharge or vaginal bleeding. She declined pelvic. CT of the abdomen and pelvis was negative with exception of a small amount of fluid in the abdomen. Favor likely secondary to ovarian cyst or shot. Patient was given IV fluids, Toradol and Dilaudid with improvement of her pain. The above laboratory results were found which were significant for a mild leukocytosis. I do favor this is consistent and likely secondary to an ovarian cyst no signs of torsion on CT. Patient was discharged follow-up with her primary care doctor. Discussed with Pt concerning signs and symptoms to watch out for. Pt was instructed to follow up with their PCP and discussed with the patient their option to return to the ED at anytime for persistent or worsening symptoms. The appropriate anticipatory guidance and out-patient management, including indications for return to the emergency department, were explained at length to the patient and understood. Impression Primary Impression: Right lower quadrant abdominal pain Additional Impression: Leukocytosis, Unspecified Scribe Attestation The scribe's documentation has been prepared under my direction and personally reviewed by me in its entirety. I confirm that the note above accurately reflects all work, treatment, procedures, and medical decision making performed by me. Departure Information Dispostion Home / Self-Care Referrals Ho Benedict M.D. (PCP) Forms HOME CARE DOCUMENTATION FORM, IMPORTANT VISIT INFORMATION Patient Instructions Abdominal Pain - [facility], [facility] Additional Instructions Please follow up with your primary care doctor with in the next 24 hours. Any worsening of your symptoms, please return to the ED immediately. This includes fevers greater than 100.4, persistent nausea vomiting, vaginal discharge, vaginal bleeding, worsening pain, or any other concerning signs or symptoms from your standpoint. This take Motrin or Tylenol as needed for the pain. Please do not drive, work, operate heavy machinery for the remainder of day with the narcotics given. Problem Qualifiers
== END 2017-04-19 16:37 | disposition home or self-care (01) ==
LOC: C.EDB 12:24 → C.EDC 16:37
DX: R10.31 Right lower quadrant pain (principal); D72.829 Elevated white blood cell count, unspecified; F41.9 Anxiety disorder, unspecified; F32.9 Major depressive disorder, single episode, unspecified; E89.3 Postprocedural hypopituitarism; F17.200 Nicotine dependence, unspecified, uncomplicated; Z86.011 Personal history of benign neoplasm of the brain; Z86.69 Personal history of other diseases of the nervous system and sense organs; Z98.2 Presence of cerebrospinal fluid drainage device; Z83.3 Family history of diabetes mellitus; Z82.49 Family history of ischemic heart disease and other diseases of the circulatory system; Z84.1 Family history of disorders of kidney and ureter; Z82.0 Family history of epilepsy and other diseases of the nervous system

== ENCOUNTER 2018-01-02 15:03 | Emergency (ER) | payer BC, OTHER ==
[~2018-01-02] VITALS: Ht 154.9 cm; Wt 80.4 kg
[~2018-01-02 15:03] MED LIST changes: -ACET-1256 PO; +IBUP-1428 PO
[2018-01-02 15:32] VITALS: TEMP 36.7; Ht 154.9 cm; Wt 80.4 kg
[2018-01-02] MEDS ORDERED: VNTHFA/IN INH (18:08)
--- NOTE | 2018-01-02 18:15 | EMERGENCY ROOM VISIT NOTE ---
History First contact with patient: 17:31 Chief Complaint: PELVIC PAIN Stated Complaint: R SIDED PAIN, POSSIBLE RUPTURED CYST,REFERRED BYMD History of Present Illness The patient is a 27 year old female who presents to the Emergency Room with complaints of right lower quadrant abdominal pain. Patient states she is currently , but is being evaluated for possible ectopic versus miscarriage versus intrauterine . She was being seen by several providers and has been to the emergency department and [place] multiple times over the past month. She was eventually admitted to [facility] by the drive worker there to evaluate for possible ectopic . While in [facility], the patient had beta hCG levels trended, and did note that they were trending upward. On December 30, the patient had a repeat ultrasound and was evaluated by the drive worker. She was told at that time to have a repeat ultrasound completed in 4 days and the hCG levels are rising normally. The patient states she continues to have right lower quadrant abdominal pain, denies any vaginal discharge, bleeding, or pain with intercourse. She has not been ill recently with any fevers, chills, nausea, vomiting, or other concerning symptoms. She has not had any urinary symptoms. She states she contacted her drive worker today through her primary care provider due to ongoing pain, and was advised to come to the emergency department today for evaluation for possible ectopic . She describes the pain as sharp and intermittent, and states it has radiated around to the right flank. She does have a history of miscarriages, and is concerned. She is uncertain exactly how far along her should be at this point due to irregular periods. She states she was told recently that her hCG level today should be at approximately 1200. Review of Systems A complete 10 point review of systems was reviewed with the patient with pertinent positives and negatives as per history of present illness. All else were negative. 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 (18) Leukocytosis, Unspecified (19) Meningitis (20) Opioid dependence (21) Panic (22) Pelvic pain (23) Vaginal bleeding (24) Vomiting Surgical Problems: (1) FAMILY LAWYER (ventriculoperitoneal) shunt status Family History Diabetes mellitus FH: cancer FH: gallbladder disease FH: heart disease FH: lung disease Hypertension Kidney disease Kidney stones Seizures Social History Smoking Status: Current Every Day Smoker Alcohol Use: none Drug Use: none Marital Status: in relationship Housing Status: lives with family Occupation Status: unemployed Current/Historical Medications Scheduled Albuterol Hfa (Ventolin Hfa), 2-4 PUFFS INH Q6H Hydrocortisone (Cortef), 5 MG PO TID Levetiractam (Levetiracetam), 500 MG PO BID Levothyroxine Sodium (Levothyroxine Sodium), 75 MCG PO DAILY Multivit/Min/Iron/Fol Ac/Pren ( Vitamin), 1 TAB PO DAILY Trazodone HCl (Trazodone HCl), 50-100 MG PO HS Scheduled PRN Clonazepam (Clonazepam), 1 MG PO DAILY PRN for Anxiety Physical Exam Vital Signs Date Time Temp Pulse Resp B/P (MAP) Pulse Ox O2 Delivery O2 Flow Rate FiO2 01/02/18 21:57 76 18 127/78 99 Room Air 01/02/18 15:32 36.7 97 20 129/76 99 Room Air Physical Exam VITALS: Vitals are noted on the nurse's note and reviewed by myself. Vital signs stable. GENERAL: This is a 27-year-old white female, in no acute distress, nondiaphoretic, well-developed well-nourished. SKIN: The skin was without rashes, erythema, edema, or bruising. There is no tenting of the skin. Capillary reflex less than 2 seconds. HEAD: Normocephalic atraumatic. EARS: External auditory canals clear, tympanic membranes pearly soares without erythema or effusion bilaterally. EYES: Pupils equal round and reactive to light and accommodation. Conjunctivae without injection, sclerae without icterus. Extraocular movements intact. NOSE: Patent, turbinates without inflammation or discharge. No sinus tenderness. MOUTH: Mucous membranes moist. Tonsils are not enlarged. Pharynx without erythema or exudate. Uvula midline. Airway patent. Tongue does not deviate. NECK: Supple without nuchal rigidity. No lymphadenopathy. No thyromegaly. Cervical spine is nontender. No JVD. HEART: Regular rate and rhythm without murmurs gallops or rubs. LUNGS: Clear to auscultation bilaterally without wheezes, rales or rhonchi. No dullness to percussion. No retractions or accessory muscle use. ABDOMEN: Positive bowel sounds x 4. Normal tympanic percussion. Tenderness of the right lower quadrant over McBurney's point. Positive rebound tenderness. Negative referred tenderness. The abdomen was otherwise soft, nontender, without masses or organomegaly. Daniels sign negative. No guarding. MUSCULOSKELETAL: No muscle atrophy, erythema, or edema noted. Full range of motion without joint tenderness in all extremities. No tenderness to palpation. Normal gait. Strength 5/5 throughout. NEURO: Patient was alert and oriented to person place and time. Normal sensation to light and sharp touch. Deep tendon reflexes 2+ throughout. No focal neurological deficits. Medical Decision & Procedures ER Provider Diagnostic Interpretation: ULTRASOUND CLINICAL HISTORY: possible ectopic, RLQ pain/tenderness, . COMPARISON STUDY: None. TECHNIQUE: Transabdominal and transvaginal sonography of the pelvis was performed. FINDINGS: Uterus measures 8 x 3.8 x 5.9 cm. Endometrium measures 1.4 cm in thickness. Note is made of a cystic focus within the endometrium with a mean diameter of 0.66 cm. No definite pole or yolk sac is identified. However, this contains a 0.1 cm echogenic focus. The left ovary was not visualized. The right ovary measures 2.9 x 2 x 2.5 cm. There is color flow within the right ovary. Note is made of a 1.6 cm dominant follicle within the right ovary. There was a small to moderate amount of fluid within the pelvis. IMPRESSION: 1. Cystic focus within the endometrium with a mean diameter of 0.66 cm. No definite yolk sac or pole within the cystic focus. This contains an indeterminate 0.1 cm echogenic focus. This may reflect a normal early intrauterine gestation however a pseudogestational sac in the setting of an occult ectopic could appear similar. Therefore, close clinical follow-up, including serial beta hCG levels and follow-up ultrasound is recommended. 2. Small to moderate amount of fluid within the pelvis. 3. Nonvisualization of the left ovary. Electronically signed by: Emery Ruiz M.D. 01/02/2018 8:08 PM Dictated Date/Time: 01/02/2018 8:02 PM APPENDIX ULTRASOUND HISTORY: Right lower quadrant abdominal pain. COMPARISON: CT of the abdomen and pelvis April 19, 2017. FINDINGS: The appendix is not visualized. No mass, fluid collection or other sonographic abnormality is identified within the right lower quadrant. IMPRESSION: Nonvisualization of the appendix. This study is nondiagnostic in regards to evaluation for acute appendicitis. Electronically signed by: Emery Ruiz M.D. 01/02/2018 8:01 PM Dictated Date/Time: 01/02/2018 8:01 PM Laboratory Results 01/02/18 18:25 Red Blood Count 4.75, Mean Corpuscular Volume 84.8, Mean Corpuscular Hemoglobin 30.1, Mean Corpuscular Hemoglobin Concent 35.5, Mean Platelet Volume 10.5, Neutrophils (%) (Auto) 63.4, Lymphocytes (%) (Auto) 32.0, Monocytes (%) (Auto) 3.5, Eosinophils (%) (Auto) 0.5, Basophils (%) (Auto) 0.3, Neutrophils # (Auto) 8.43, Lymphocytes # (Auto) 4.26, Monocytes # (Auto) 0.47, Eosinophils # (Auto) 0.06, Basophils # (Auto) 0.04 01/02/18 18:25 Test 01/02/18 18:25 01/02/18 18:49 White Blood Count 13.30 K/uL (4.8-10.8) Red Blood Count 4.75 M/uL (4.2-5.4) Hemoglobin 14.3 g/dL (12.0-16.0) Hematocrit 40.3 % (37-47) Mean Corpuscular Volume 84.8 fL (80-100) Mean Corpuscular Hemoglobin 30.1 pg (25-34) Mean Corpuscular Hemoglobin Concent 35.5 g/dl (32-36) Platelet Count 367 K/uL (130-400) Mean Platelet Volume 10.5 fL (7.4-10.4) Neutrophils (%) (Auto) 63.4 % Lymphocytes (%) (Auto) 32.0 % Monocytes (%) (Auto) 3.5 % Eosinophils (%) (Auto) 0.5 % Basophils (%) (Auto) 0.3 % Neutrophils # (Auto) 8.43 K/uL (1.4-6.5) Lymphocytes # (Auto) 4.26 K/uL (1.2-3.4) Monocytes # (Auto) 0.47 K/uL (0.11-0.59) Eosinophils # (Auto) 0.06 K/uL (0-0.5) Basophils # (Auto) 0.04 K/uL (0-0.2) RDW Standard Deviation 38.9 fL (36.4-46.3) RDW Coefficient of Variation 12.6 % (11.5-14.5) Immature Granulocyte % (Auto) 0.3 % Immature Granulocyte # (Auto) 0.04 K/uL (0.00-0.02) Urine Color ORANGE Urine Appearance CLOUDY (CLEAR) Urine pH 5.5 (4.5-7.5) Urine Specific [place]lin 1.012 (1.000-1.030) Urine Protein NEG (NEG) Urine Glucose (UA) NEG (NEG) Urine Ketones NEG (NEG) Urine Occult Blood 3+ (NEG) Urine Nitrite NEG (NEG) Urine Bilirubin NEG (NEG) Urine Urobilinogen NEG (NEG) Urine Leukocyte Esterase LARGE (NEG) Urine WBC (Auto) 10-30 /hpf (0-5) Urine RBC (Auto) >30 /hpf (0-4) Urine Hyaline Casts (Auto) 1-5 /lpf (0-5) Urine Epithelial Cells (Auto) >30 /lpf (0-5) Urine Bacteria (Auto) NEG (NEG) Anion Gap 9.0 mmol/L (3-11) Est Creatinine Clear Calc Drug Dose 110.1 ml/min Estimated GFR () 128.4 Estimated GFR (Non- 110.8 BUN/Creatinine Ratio 9.6 (10-20) Calcium Level 8.7 mg/dl (8.5-10.1) Total Bilirubin 0.3 mg/dl (0.2-1) Aspartate Amino Transf (AST/SGOT) 19 U/L (15-37) Alanine Aminotransferase (ALT/SGPT) 58 U/L (12-78) Alkaline Phosphatase 78 U/L (45-117) Total Protein 7.5 gm/dl (6.4-8.2) Albumin 3.9 gm/dl (3.4-5.0) Globulin 3.6 gm/dl (2.5-4.0) Albumin/Globulin Ratio 1.1 (0.9-2) Human Chorionic Gonadotropin, Quant 1972 mIU/mL ED Course The patient was seen and evaluated as above. IV access obtained, labs drawn. Lab results reviewed by myself. Ultrasound results reviewed by myself and radiologist as above. I discussed the case with my attending. I discussed the case with Dr. Balderas from [facility] RESIDENTIAL TECH. Please see his dictation. I discussed the findings with the patient at bedside. I advised her that Dr. Balderas would be down to consult. Dr. Balderas advised me that the patient is ready for discharge. She will follow- up outpatient with him in the office. I discussed discharge instructions with the patient at bedside. Discharge instructions reviewed, the patient was discharged home in good condition. Medical Decision This is a 27-year-old female patient presents to the emergency department today complaining of right lower quadrant pain radiating to the right flank. She has been seen by [facility] multiple times over the past 3-4 weeks for the same pain. She was admitted at one point to be monitored for possible ectopic . She was told that all labs and imaging were consistent with intrauterine , however there was still concern for possible ectopic due to the severe pain the patient has been experiencing. Today, the pain has worsened, and the patient was advised by the drive worker and primary care provider to be evaluated at the emergency department. Previous medical records were reviewed, and I did note the patient's most recent beta hCG level on 12/30/17 was 650.2. Today, her beta hCG is 1972. Previous ultrasound reports on 12/29/17 showed right ovarian cyst and nonspecific findings. There is no obvious intrauterine gestation. Radiologist from [place] interpreted this as possible early intrauterine gestation, failed , or ectopic . Close interval follow-up ultrasound was performed. The patient's drive worker at [facility] had recommended repeat ultrasound and beta hCG in 4 days. This was performed today here in the emergency department with the above findings. The patient's CBC did show slightly elevated white blood cell count of 13,000. I suspect this may be related to the and stress the patient has been under. The drive worker will continue to monitor this. The patient's EMP was negative for renal, hepatic, electrolyte abnormality. Urinalysis appears contaminated with epithelial cells, blood, and white blood cells. With the elevated white blood cell count, I am concerned for possible UTI. The urine will be cultured, and the patient will receive a phone call for treatment if necessary. She was encouraged to follow-up here or contact her PCP /drive worker for any urinary symptoms as she is asymptomatic at this time. The patient's workup appears consistent with an early intrauterine , although I was concerned due to the 4 week long history of right lower quadrant pain for possible appendicitis. Ultrasound was nonspecific for acute appendicitis. The patient has not been ill recently, and has not had a fever. Although she does have a slightly elevated white blood cell count, I have very low suspicion for acute appendicitis at this time. The patient will continue to follow-up closely with the primary care provider and drive worker, and she was encouraged to come back to the emergency department immediately for any severe or worsening pain. Etiologies such as , ectopic , ovarian cyst, ovarian torsion, appendicitis, diverticulitis, obstruction, inflammatory bowel disease, renal colic, PUD, biliary pathology, pancreatitis, mesenteric ischemia, aortic pathology, infections, genitourinary, UTI, perforated viscus, as well as others were entertained. Medication Reconcilliation Current Medication List: was personally reviewed by me Blood Pressure Screening Patient's blood pressure: Normal blood pressure Impression Primary Impression: First trimester Additional Impression: Right lower quadrant abdominal pain Departure Information Dispostion Home / Self-Care Condition GOOD Referrals Ho Benedict M.D. (PCP) Omar Balderas MD Patient Instructions ED Preg Established Normal Sxs, My [facility] Additional Instructions You were seen in the emergency department today for right lower quadrant pain. Labs did show elevated hCG levels consistent with previous trends. Please follow-up plan of care as outlined by Dr. Balderas. You may use Tylenol up to 1g (1000mg) 3 times per day for your right lower quadrant abdominal pain. Do not exceed 3000 mg per day. Follow-up with your primary care provider regarding ongoing right lower quadrant abdominal pain. As discussed, ultrasound did not show the appendix, and I have low suspicion for acute appendicitis without infection symptoms. Urinalysis did show white blood cells and blood. This will be cultured. You will receive a phone call if culture is positive for urinary tract infection. Return to the emergency department for significantly worsening abdominal pain associated with fever, chills, vomiting, vaginal bleeding or discharge, passing tissue, or other symptoms. Return for any concerns. Problem Qualifiers
[2018-01-02 18:36] LABS: BASO % 0.3 %; EOS % 0.5 %; EOS ABS # 0.06 K/uL (0-0.5); HEMATOCRIT 40.3 % (37-47); HEMOGLOBIN 14.3 g/dL (12.0-16.0); LYMPH ABS # 4.26 K/uL (1.2-3.4); MEAN CELL VOLUME 84.8 fL (80-100); MEAN CORPUSCULAR HEMOGLOBIN 30.1 pg (25-34); MEAN CORPUSCULAR HGB CONC 35.5 g/dl (32-36); MEAN PLATELET VOLUME 10.5 fL (7.4-10.4); MONO % 3.5 %; MONO ABS # 0.47 K/uL (0.11-0.59); NEUT % 63.4 %; NEUT ABS # 8.43 K/uL (1.4-6.5); PLATELET COUNT 367 K/uL (130-400); RED CELL DISTRIBUTION WIDTH CV 12.6 % (11.5-14.5); RED CELL DISTRIBUTION WIDTH SD 38.9 fL (36.4-46.3)
[2018-01-02 18:37] LABS: BASO ABS # 0.04 K/uL (0-0.2); IG# 0.04 K/uL (0.00-0.02)
[2018-01-02 18:54] LABS: ALBUMIN 3.9 gm/dl (3.4-5.0); CALCIUM 8.7 mg/dl (8.5-10.1); CREATININE 0.75 mg/dl (0.60-1.20); POTASSIUM 3.5 mmol/L (3.5-5.1)
[2018-01-02 18:57] LABS: TOTAL PROTEIN 7.5 gm/dl (6.4-8.2)
--- NOTE | 2018-01-02 20:03 | DIAGNOSTIC IMAGING REPORT ---
APPENDIX ULTRASOUND HISTORY: Right lower quadrant abdominal pain. COMPARISON: CT of the abdomen and pelvis April 19, 2017. FINDINGS: The appendix is not visualized. No mass, fluid collection or other sonographic abnormality is identified within the right lower quadrant. IMPRESSION: Nonvisualization of the appendix. This study is nondiagnostic in regards to evaluation for acute appendicitis. Electronically signed by: Emery Ruiz M.D. 01/02/2018 8:01 PM Dictated Date/Time: 01/02/2018 8:01 PM
--- NOTE | 2018-01-02 20:09 | DIAGNOSTIC IMAGING REPORT ---
ULTRASOUND CLINICAL HISTORY: possible ectopic, RLQ pain/tenderness, . COMPARISON STUDY: None. TECHNIQUE: Transabdominal and transvaginal sonography of the pelvis was performed. FINDINGS: Uterus measures 8 x 3.8 x 5.9 cm. Endometrium measures 1.4 cm in thickness. Note is made of a cystic focus within the endometrium with a mean diameter of 0.66 cm. No definite pole or yolk sac is identified. However, this contains a 0.1 cm echogenic focus. The left ovary was not visualized. The right ovary measures 2.9 x 2 x 2.5 cm. There is color flow within the right ovary. Note is made of a 1.6 cm dominant follicle within the right ovary. There was a small to moderate amount of fluid within the pelvis. IMPRESSION: 1. Cystic focus within the endometrium with a mean diameter of 0.66 cm. No definite yolk sac or pole within the cystic focus. This contains an indeterminate 0.1 cm echogenic focus. This may reflect a normal early intrauterine gestation however a pseudogestational sac in the setting of an occult ectopic could appear similar. Therefore, close clinical follow-up, including serial beta hCG levels and follow-up ultrasound is recommended. 2. Small to moderate amount of fluid within the pelvis. 3. Nonvisualization of the left ovary. Electronically signed by: Emery Ruiz M.D. 01/02/2018 8:08 PM Dictated Date/Time: 01/02/2018 8:02 PM
[2018-01-02 21:57] VITALS: BP 127/78; PULSE 76; O2SAT 99
--- NOTE | 2018-01-02 22:55 | GYNECOLOGICAL CONSULTATION ---
DATE OF CONSULTATION: 01/02/2018 Consult is placed by Jemma Rivera, Physician working with Jemma Rivera is Dr. Adams from the ER. HISTORY OF PRESENT ILLNESS: This is a 27-year-old G1, P0 who has had right low abdomen and pelvic pain x1 month. She was seen at [place] by Dr. Ba where she was evaluated for possible ectopic . The patient was admitted for couple of days and discharged home. Her HCG titers were rising. HCG titer time of discharge was about 600. She continues to have right-sided abdominal pain. The initial ultrasound which I do not have the report for showed possible right adnexal mass versus cyst. I would assume because hCG was only 600 at that time the diagnosis of ectopic could not be conclusively made. The patient is scheduled for another appointment with Dr. aB tomorrow. She, however, called my office with increasing abdominal pain today, so she was asked to come to the Emergency Room here at [facility] for evaluation. Here at [facility], she was seen by the ER staff and examined by Jemma Rivera. She reports the pain is on and off and sometimes stabbing. She denies any vaginal discharge or vaginal bleeding. She denied any shortness of breath, chills or fever. She went on to have a CBC which showed white blood count of 13.3, hemoglobin of 14.3, hematocrit of 40.3 and platelets of 367,000. Pelvic ultrasound done also showed uterus measured 8 x 3.8 x 5.9 cm. The endometrium measured 1.4 cm. There is a cystic focus within the endometrium suspicious for early IUP. The left ovary was not visualized, but the right ovary showed a 1.6 cm dominant follicle. There was no other gross anomalies on the right adnexa seen. There was small to moderate fluid within the pelvis. On seeing the patient, the patient appeared to be comfortably resting in bed. PAST MEDICAL HISTORY: The patient has a long list of medical problems in the past. She has a history of brain tumor, history of hydrocephalus, history of hyperpituitarism, history of meningitis, history of opioid dependence, hepatitis C, anxiety and sinusitis. PAST SURGICAL HISTORY: The patient has had history of a ventriculoperitoneal shunt. SOCIAL HISTORY: The patient now denies drug or alcohol use. FAMILY HISTORY: Noncontributory. ALLERGIES: THE PATIENT IS ALLERGIC TO MORPHINE AND TRAMADOL. PHYSICAL EXAMINATION: GENERAL: Well-developed, well-nourished white female in no acute distress. VITAL SIGNS: Stable. On admission, temperature of 36.7, pulse is 97, respirations 20, blood pressure is 129/76. HEART: S1, S2, regular rhythm and rate. LUNGS: Clear to auscultation bilaterally. ABDOMEN: Nontender, nondistended. There is some discomfort as I palpate the right lower abdomen. PELVIC: Unremarkable. There is no blood in the vaginal vault. There is no cervical motion tenderness. There is some tenderness as I palpate the right adnexa, but no masses appreciated in either adnexa. EXTREMITIES: No cyanosis, clubbing, edema. ASSESSMENT AND PLAN: A 27-year-old G1, P0, beta hCG today is 1900. The patient was followed up by Dr. Ba for possible ectopic . Today on the ultrasound, there was no ectopic seen on the right adnexa as suspected earlier. At one point there is follicle seen on the right ovary. There is, however, a cystic lesion in the uterus which is suspicious for intrauterine . Discussed findings with the patient. The patient wishes to keep the if it is indeed a viable IUP . The plan therefore is to continue to monitor the patient with serial hCG. She will call the office and will be followed up with serial HCGs and repeat ultrasound performed. We have given patient ectopic precautions as well. The patient will therefore be discharged from the ER and follow up as an outpatient. The patient is here with a friend and the patient has agreed with the plan of management.
== END 2018-01-02 21:58 | disposition home or self-care (01) ==
LOC: C.EDB 15:05
DX: R10.31 Right lower quadrant pain (principal); O26.891 Other specified pregnancy related conditions, first trimester; Z3A.00 Weeks of gestation of pregnancy not specified; F41.9 Anxiety disorder, unspecified; O99.341 Other mental disorders complicating pregnancy, first trimester; F32.9 Major depressive disorder, single episode, unspecified; F19.10 Other psychoactive substance abuse, uncomplicated; G91.9 Hydrocephalus, unspecified; E23.0 Hypopituitarism; O99.281 Endocrine, nutritional and metabolic diseases complicating pregnancy, first trimester; Z86.61 Personal history of infections of the central nervous system; Z83.3 Family history of diabetes mellitus; Z80.9 Family history of malignant neoplasm, unspecified; Z83.79 Family history of other diseases of the digestive system; Z82.49 Family history of ischemic heart disease and other diseases of the circulatory system; Z84.1 Family history of disorders of kidney and ureter; F17.210 Nicotine dependence, cigarettes, uncomplicated; O99.331 Smoking (tobacco) complicating pregnancy, first trimester; Z79.899 Other long term (current) drug therapy

== ENCOUNTER 2018-03-06 16:55 | Emergency (ER) | payer BC, OTHER ==
[~2018-03-06] VITALS: Ht 154.9 cm; Wt 78.3 kg
[~2018-03-06 16:55] MED LIST changes: -ADVIN25/60 INH; -CYM30 PO; -DICY10CA12 PO; -DULO60CA44 PO; -HYDR5TAB57 PO; -IBUP-1428 PO; -NRN600 PO; -TRAM-10 PO
[2018-03-06 16:58] VITALS: TEMP 36.9; Ht 154.9 cm; Wt 78.3 kg
[2018-03-06] MEDS ORDERED: SODIUM CHLORIDE 0.9% 1000ML 1,000 ML IV STA (17:10)
[2018-03-06] MEDS ORDERED: DiphenhydrAMINE HCL 50 MG/ML VIAL IV STA (17:10)
[2018-03-06] MEDS ORDERED: HYDR5TAB57 PO (17:41)
[2018-03-06] MEDS ORDERED: FLV1 PO (17:46)
[2018-03-06] MEDS ORDERED: KLN5X PO (17:46)
[2018-03-06] MEDS ORDERED: MULT-506 PO (17:46)
[2018-03-06] MEDS ORDERED: CYM30 PO (17:46)
[2018-03-06] MEDS ORDERED: TRAZ50TA35 PO (17:46)
[2018-03-06] MEDS ORDERED: LEVO100T7 PO (17:46)
[2018-03-06] MEDS ORDERED: LEVE750T PO (17:46)
[2018-03-06] MEDS ORDERED: PRENTAB65 PO (17:48)
[2018-03-06] MEDS ORDERED: VNTHFA/IN INH (18:08)
[2018-03-06] MEDS ORDERED: METOCLOPRAMIDE HCL INJ 5 MG/ML 2 ML VIAL IV STA (18:11)
[2018-03-06 18:43] LABS: BASO % 0.2 %; BASO ABS # 0.02 K/uL (0-0.2); EOS % 0.3 %; EOS ABS # 0.04 K/uL (0-0.5); HEMATOCRIT 35.8 % (37-47); HEMOGLOBIN 12.6 g/dL (12.0-16.0); IG# 0.03 K/uL (0.00-0.02); LYMPH % 24.8 %; LYMPH ABS # 3.26 K/uL (1.2-3.4); MEAN CELL VOLUME 83.6 fL (80-100); MEAN CORPUSCULAR HEMOGLOBIN 29.4 pg (25-34); MEAN CORPUSCULAR HGB CONC 35.2 g/dl (32-36); MEAN PLATELET VOLUME 9.9 fL (7.4-10.4); MONO % 5.5 %; MONO ABS # 0.72 K/uL (0.11-0.59); PLATELET COUNT 340 K/uL (130-400); RED CELL DISTRIBUTION WIDTH CV 12.7 % (11.5-14.5); RED CELL DISTRIBUTION WIDTH SD 38.3 fL (36.4-46.3); WHITE BLOOD COUNT 13.17 K/uL (4.8-10.8)
[2018-03-06 19:04] LABS: ALBUMIN 3.1 gm/dl (3.4-5.0); CALCIUM 9.3 mg/dl (8.5-10.1); CREATININE 0.59 mg/dl (0.60-1.20); POTASSIUM 3.5 mmol/L (3.5-5.1)
[2018-03-06] MEDS ORDERED: PROM12.57 PO (19:16)
--- NOTE | 2018-03-06 19:36 | EMERGENCY ROOM VISIT NOTE ---
History Report prepared by Nanda: Fam Herr Under the Supervision of: Dr. Spenser Adams M.D. First contact with patient: 17:01 Chief Complaint: GI ASSESSMENT Stated Complaint: VOMITING,DIARRHEA,MIGRAINE, 14 WKS History of Present Illness The patient is a 27 year old female who presents to the Emergency Room with complaints of a worsening migraine headache that started 2 days ago. She states that she is 14-weeks , and this is her first . The patient notes that she is considered high risk as she has a CLICKER OPERATOR shunt because she had a brain tumor which was removed at the age of 14. She says that she got meningitis right afterward which persisted for a couple years. The patient says that her migraine over the past 2 days is not unusual for her, as she has a history of migraines, and this feels like her previous ones. She notes that her headache is a throbbing pain behind her right eye, which is worsened with light. The patient adds that her shunt does not hurt. She says that she was taken off her migraine medications for her , and Tylenol has not been working. She notes that over the past 24 hours, she has had episodes of vomiting and diarrhea. She says that her diarrhea is watery and without blood. The patient denies any vaginal discharge or bleeding, or any swelling to her legs. She notes that she has no history of preeclampsia. The patient denies any recent antibiotic use or foreign travels. Source of History: patient Onset: 2 days ago Position: head Symptom Intensity: similar to previous migraines Quality: other (migraine) Timing: worsening Modifying Factors (Worsening): other (light) Associated Symptoms: + vomiting, + diarrhea, No hematochezia Note: Associated symptoms: Denies vaginal discharge or bleeding, or any swelling to her legs. Review of Systems See HPI for pertinent positives & negatives. A total of 10 systems reviewed and were otherwise negative. 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 (18) Leukocytosis, Unspecified (19) Meningitis (20) Opioid dependence (21) Panic (22) Pelvic pain (23) Vaginal bleeding (24) Vomiting Surgical Problems: (1) CLICKER OPERATOR (ventriculoperitoneal) shunt status Family History Diabetes mellitus FH: cancer FH: gallbladder disease FH: heart disease FH: lung disease Hypertension Kidney disease Kidney stones Seizures Social History Smoking Status: Current Every Day Smoker Alcohol Use: none Drug Use: none Marital Status: in relationship Housing Status: lives with family Occupation Status: unemployed Current/Historical Medications Scheduled Duloxetine HCl (Duloxetine HCl), 30 MG PO DAILY Folic Acid (Folic Acid), 1 MG PO DAILY Hydrocortisone (Cortef), 5 MG PO TID Levetiracetam (Keppra), 750 MG PO BID Levothyroxine Sodium (Levothyroxine Sodium), 100 MCG PO DAILY Multivit (), 1 TAB PO DAILY Scheduled PRN Albuterol Hfa (Ventolin Hfa), 2-4 PUFFS INH Q6H PRN for SOB/Wheezing Clonazepam (Clonazepam), 0.5 MG PO DAILY PRN for Anxiety Promethazine (Phenergan ), 1 TAB PO Q8 PRN for Nausea or Vomiting Trazodone Hcl (Trazodone), 50-100 MG PO HS PRN for Sleep Allergies Coded Allergies: Lactose (Verified Adverse Reaction, Intermediate, LACTOSE INTOLERANT, 01/02) Morphine (Verified Adverse Reaction, Unknown, "mean" and "irriatible", ) Tramadol (Verified Adverse Reaction, Unknown, hx of seizures, told by neuologist to avoid, 01/02/18) Uncoded Allergies: DERMABOND (Allergy, Mild, BURNT SKIN, 07/17/15) Physical Exam Vital Signs Date Time Temp Pulse Resp B/P (MAP) Pulse Ox O2 Delivery O2 Flow Rate FiO2 03/06/18 18:43 117 124/77 99 Room Air 03/06/18 18:42 105 18 124/77 99 Room Air 03/06/18 16:58 36.9 83 20 137/99 99 Room Air Physical Exam Constitutional: Vital signs reviewed. Eyes: Pupils are equal round reactive to light. Conjunctiva are noninjected. ENT: Pharynx is clear without erythema or exudate. Mucous membranes are dry. Neck supple without meningeal signs. Respiratory: Clear to auscultation bilaterally. Breath sounds are equal bilaterally. Cardiovascular: Regular rate and rhythm. No rubs or gallops. GI: Soft, nondistended and nontender. Bowel sounds are present. Musculoskeletal: No peripheral edema. No lower extremity tenderness. Integumentary: No cyanosis. Neurological: The patient is awake and alert. Cranial nerves II-XII are intact. Motor is 5 out of 5 all extremities. Sensation is intact to light touch all extremities. Normal speech. No pronator drift. No limb ataxia. Psychiatric: Normal affect. Medical Decision & Procedures Laboratory Results 03/06/18 18:35 Red Blood Count 4.28, Mean Corpuscular Volume 83.6, Mean Corpuscular Hemoglobin 29.4, Mean Corpuscular Hemoglobin Concent 35.2, Mean Platelet Volume 9.9, Neutrophils (%) (Auto) 69.0, Lymphocytes (%) (Auto) 24.8, Monocytes (%) (Auto) 5.5, Eosinophils (%) (Auto) 0.3, Basophils (%) (Auto) 0.2, Neutrophils # (Auto) 9.10, Lymphocytes # (Auto) 3.26, Monocytes # (Auto) 0.72, Eosinophils # (Auto) 0.04, Basophils # (Auto) 0.02 03/06/18 18:35 Test 03/06/18 18:35 03/06/18 18:39 White Blood Count 13.17 K/uL (4.8-10.8) Red Blood Count 4.28 M/uL (4.2-5.4) Hemoglobin 12.6 g/dL (12.0-16.0) Hematocrit 35.8 % (37-47) Mean Corpuscular Volume 83.6 fL (80-100) Mean Corpuscular Hemoglobin 29.4 pg (25-34) Mean Corpuscular Hemoglobin Concent 35.2 g/dl (32-36) Platelet Count 340 K/uL (130-400) Mean Platelet Volume 9.9 fL (7.4-10.4) Neutrophils (%) (Auto) 69.0 % Lymphocytes (%) (Auto) 24.8 % Monocytes (%) (Auto) 5.5 % Eosinophils (%) (Auto) 0.3 % Basophils (%) (Auto) 0.2 % Neutrophils # (Auto) 9.10 K/uL (1.4-6.5) Lymphocytes # (Auto) 3.26 K/uL (1.2-3.4) Monocytes # (Auto) 0.72 K/uL (0.11-0.59) Eosinophils # (Auto) 0.04 K/uL (0-0.5) Basophils # (Auto) 0.02 K/uL (0-0.2) RDW Standard Deviation 38.3 fL (36.4-46.3) RDW Coefficient of Variation 12.7 % (11.5-14.5) Immature Granulocyte % (Auto) 0.2 % Immature Granulocyte # (Auto) 0.03 K/uL (0.00-0.02) Anion Gap 8.0 mmol/L (3-11) Est Creatinine Clear Calc Drug Dose 138.0 ml/min Estimated GFR () 147.6 Estimated GFR (Non- 127.4 BUN/Creatinine Ratio 13.2 (10-20) Calcium Level 9.3 mg/dl (8.5-10.1) Total Bilirubin 0.2 mg/dl (0.2-1) Direct Bilirubin 0.1 mg/dl (0-0.2) Aspartate Amino Transf (AST/SGOT) 12 U/L (15-37) Alanine Aminotransferase (ALT/SGPT) 35 U/L (12-78) Alkaline Phosphatase 60 U/L (45-117) Total Protein 7.0 gm/dl (6.4-8.2) Albumin 3.1 gm/dl (3.4-5.0) Urine Color YELLOW Urine Appearance CLEAR (CLEAR) Urine pH 6.0 (4.5-7.5) Urine Specific Violet 1.019 (1.000-1.030) Urine Protein NEG (NEG) Urine Glucose (UA) NEG (NEG) Urine Ketones NEG (NEG) Urine Occult Blood NEG (NEG) Urine Nitrite NEG (NEG) Urine Bilirubin NEG (NEG) Urine Urobilinogen NEG (NEG) Urine Leukocyte Esterase NEG (NEG) Laboratory results as reviewed by me. Medications Administered Medications (Trade) Dose Ordered Sig/Wili Route Start Time Stop Time Status Last Admin Dose Admin Sodium Chloride 1,000 ml @ 999 mls/hr Q1H1M STAT IV 03/06/18 17:10 03/06/18 18:10 DC 03/06/18 18:41 999 MLS/HR Diphenhydramine HCl (Benadryl Inj) 50 mg NOW STAT IV 03/06/18 17:10 03/06/18 17:14 DC 03/06/18 18:41 50 MG Metoclopramide HCl (Reglan Inj) 10 mg NOW STAT IV 03/06/18 18:11 03/06/18 18:12 DC 03/06/18 18:41 10 MG ED Course 170: The patient was evaluated in room B2. A complete history and physical exam was performed. 171: Benadryl Inj 50 mg IV, NSS 1000 ml @ 999 mls/hr IV. 1810: Reglan Inj 10 mg IV. Medical Decision This is a 27-year-old female who presents with headache, vomiting and diarrhea. Differential diagnosis includes migraine headache, tension headache, hydronephrosis, CLICKER OPERATOR shunt malfunction, foodborne illness, preeclampsia, dehydration. I did perform a limited focused review of portions of the patient' s old chart on the electronic medical record. The patient was seen in December for lower abdominal pain. She had abdominal pain in first trimester . I did evaluate the patient as noted above. Patient is presenting with a headache. She states that it is consistent with her prior migraines. She is neurologically intact. She is afebrile. I did discuss imaging with her but she preferred not to have any. She feels like this is another migraine and not a problem with her CLICKER OPERATOR shunt. I did feel this was reasonable. She also complains of vomiting and diarrhea. IV access was established. I did treat her with IV normal saline, Benadryl and Reglan. I did order and review the patient's blood work as noted in the electronic medical record. She does have an elevated white blood cell count but this may be simply from her vomiting. I did reassess the patient. She is no longer hypertensive. Urinalysis does not show signs of infection or protein. She does not appear to have any signs of preeclampsia. She does state that she is feeling better and ready to go home. She was discharged with a prescription for Phenergan after discussion with the patient. She was advised to follow-up with her doctor and to return for any worsening symptoms or any new concerning symptoms. Medication Reconcilliation Current Medication List: was personally reviewed by me Blood Pressure Screening Patient's blood pressure: Elevated blood pressure Blood pressure disposition: Elevated BP felt to be situational Impression Primary Impression: Acute headache Additional Impressions: Second trimester Nausea vomiting and diarrhea Scribe Attestation The scribe's documentation has been prepared under my direct and personally reviewed by me in its entirety. I confirm that the note above accurately reflects all work, treatment, procedures, and medical decision making performed by me. Departure Information Prescriptions Promethazine (Phenergan ) 12.5 Mg Tab 1 TAB PO Q8 Y for Nausea or Vomiting, #10 TAB Prov: Spenser Adams M.D. 03/06/18 Referrals Ho Benedict M.D. (PCP) Patient Instructions My [facility] Problem Qualifiers Primary Impression: Acute headache Headache type: unspecified Intractability: not intractable Qualified Codes : R51 - Headache
[2018-03-06 19:44] VITALS: BP 125/80; PULSE 80; O2SAT 100
== END 2018-03-06 19:48 | disposition home or self-care (01) ==
LOC: C.EDB 16:57
DX: O26.892 Other specified pregnancy related conditions, second trimester (principal); R51 Headache; O21.9 Vomiting of pregnancy, unspecified; R19.7 Diarrhea, unspecified; Z3A.14 14 weeks gestation of pregnancy; O99.342 Other mental disorders complicating pregnancy, second trimester; F41.9 Anxiety disorder, unspecified; F32.9 Major depressive disorder, single episode, unspecified; O99.332 Smoking (tobacco) complicating pregnancy, second trimester; F17.200 Nicotine dependence, unspecified, uncomplicated; Z98.890 Other specified postprocedural states; Z83.3 Family history of diabetes mellitus; Z82.49 Family history of ischemic heart disease and other diseases of the circulatory system; Z84.1 Family history of disorders of kidney and ureter; Z82.0 Family history of epilepsy and other diseases of the nervous system; Z88.5 Allergy status to narcotic agent; Z88.8 Allergy status to other drugs, medicaments and biological substances; Z88.6 Allergy status to analgesic agent; Z79.899 Other long term (current) drug therapy

== ENCOUNTER 2018-03-14 13:27 | Emergency (ER) | payer BC, OTHER ==
[~2018-03-14] VITALS: Ht 154.9 cm; Wt 76.9 kg
[~2018-03-14 13:27] MED LIST changes: +CYM30 PO; -DSY50 PO; +FLV1 PO; +HYDR5TAB57 PO; -KLN1X PO; +KLN5X PO; -LEVE500T PO; +LEVE750T PO; +LEVO100T7 PO; -LEVO75TA5 PO; -PRENTAB26 PO; +PRENTAB65 PO; +PROM12.57 PO; +TRAZ50TA35 PO; +VNTHFA/IN INH
[2018-03-14 13:31] VITALS: TEMP 36.8; Ht 154.9 cm; Wt 76.9 kg
[2018-03-14] MEDS ORDERED: ALBUT/IPRATROP 3MG/0.5MG NEB 3 ML VIAL INH STA (13:47)
[2018-03-14] MEDS ORDERED: ACETAMINOPHEN 500 MG TAB PO STA (13:47)
--- NOTE | 2018-03-14 13:48 | EMERGENCY ROOM VISIT NOTE ---
History Report prepared by Nanda: Dony Shearer Under the Supervision of: Dr. Linwood Trevino M.D. First contact with patient: 13:33 Chief Complaint: CONGESTION Stated Complaint: cough, congested, sinus History of Present Illness The patient is a 27 year old white female with a past medical history of asthma , anxiety, a brain tumor, depression, drug abuse who presents to the ED with a cc of constant cough and congestion beginning a week ago. Pt states she was evaluated by her PCP and given Tessalon Perles. She reports she is also trying to take Delsym, and neither treatment is working. Pt notes she was contacted both her PCP and OB feel comfortable giving her different medication. She states she has been using her breathing treatments and inhaler with no relief. Pt reports she does not feel it is asthma related, and she gets bronchitis every year. She notes she has stopped smoking since she is and wears a nicotine patch. Pt states this is her fourth , and she has a history of three miscarriages. She reports she is 15 weeks and her 14 week ultrasound was normal. Pt denies urinary symptoms, taking Tylenol, nausea, vomiting, diarrhea, a history of blood clots in her legs or lungs, recent travel , weight gain, and swelling in legs. Source of History: patient Onset: week ago Quality: other (cough and congestion) Timing: constant Associated Symptoms: No nausea, No vomiting, No diarrhea, No urinary symptoms Note: Denies: weight gain, swelling to her legs Review of Systems See HPI for pertinent positives and negatives. A total of ten systems were reviewed and were otherwise negative. 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 (18) Leukocytosis, Unspecified (19) Meningitis (20) Opioid dependence (21) Panic (22) Pelvic pain (23) Vaginal bleeding (24) Vomiting Surgical Problems: (1) PEDIATRICS TEACHER (ventriculoperitoneal) shunt status Family History Diabetes mellitus FH: cancer FH: gallbladder disease FH: heart disease FH: lung disease Hypertension Kidney disease Kidney stones Seizures Social History Smoking Status: Current Every Day Smoker Alcohol Use: none Drug Use: none Marital Status: single Housing Status: lives with family Occupation Status: employed Current/Historical Medications Scheduled Duloxetine HCl (Duloxetine HCl), 30 MG PO DAILY Folic Acid (Folic Acid), 1 MG PO DAILY Hydrocortisone (Cortef), 5 MG PO TID Levetiracetam (Keppra), 750 MG PO BID Levothyroxine Sodium (Levothyroxine Sodium), 100 MCG PO DAILY Multivit (), 1 TAB PO DAILY Scheduled PRN Albuterol Hfa (Ventolin Hfa), 2-4 PUFFS INH Q6H PRN for SOB/Wheezing Clonazepam (Clonazepam), 0.5 MG PO DAILY PRN for Anxiety Promethazine (Phenergan ), 1 TAB PO Q8 PRN for Nausea or Vomiting Trazodone Hcl (Trazodone), 50-100 MG PO HS PRN for Sleep Allergies Coded Allergies: Lactose (Verified Adverse Reaction, Intermediate, LACTOSE INTOLERANT, 01/02) Morphine (Verified Adverse Reaction, Unknown, "mean" and "irriatible", ) Tramadol (Verified Adverse Reaction, Unknown, hx of seizures, told by neuologist to avoid, 01/02/18) Uncoded Allergies: DERMABOND (Allergy, Mild, BURNT SKIN, 07/17/15) Physical Exam Vital Signs Date Time Temp Pulse Resp B/P (MAP) Pulse Ox O2 Delivery O2 Flow Rate FiO2 03/14/18 15:49 108 18 124/84 97 03/14/18 14:54 103 18 115/87 98 03/14/18 13:41 97 Room Air 03/14/18 13:31 36.8 109 20 138/75 100 Room Air Physical Exam GENERAL: Awake, alert, well-appearing, NAD HENT: Normocephalic, atraumatic. Poor dentition. EYES: Normal conjunctiva. Sclera non-icteric. PERRL. No anisocoria. NECK: Supple. No nuchal rigidity. FROM. RESPIRATORY: CTAB, no rhonchi, wheezing, crackles CARDIAC: Tachy and regular, no MRG ABDOMEN: Soft, NTND, BS+ MSK: No chest wall TTP, no LE edema. No calf pain. Negative Homans sign. NEURO: GCS 15, CN 2-12 intact, moves all 4s on command SKIN: No rash or jaundice noted. Medical Decision & Procedures ER Provider Diagnostic Interpretation: X-ray: Per my interpretation, radiologist review. CHEST ONE VIEW PORTABLE HISTORY: cough congestion; + COMPARISON: Chest 01/27/2017. FINDINGS: The lungs are clear. The heart is normal in size. No pleural effusions. No pneumothorax. Right-sided shunt catheter is again noted. Prior cholecystectomy. IMPRESSION: No acute process. Electronically signed by: Harrison Washington M.D. 03/14/2018 2:05 PM Dictated Date/Time: 03/14/2018 2:02 PM Medications Administered Medications (Trade) Dose Ordered Sig/Wili Route Start Time Stop Time Status Last Admin Dose Admin Acetaminophen (Tylenol Tab) 1,000 mg NOW STAT PO 03/14/18 13:47 03/14/18 13:50 DC 03/14/18 13:55 1,000 MG Albuterol/ Ipratropium (Duoneb) 3 ml ONE STAT INH 03/14/18 13:47 03/14/18 13:50 DC 03/14/18 13:47 3 ML Benzonatate (Tessalon Perles Cap) 100 mg NOW ONCE PO 03/14/18 14:00 03/14/18 14:01 DC 03/14/18 14:00 100 MG ED Course 1344: The patient was evaluated in room C09. A complete history and physical exam was performed. 1445: I reevaluated the patient. Discussed results and discharge instructions: she verbalized understanding and agreement. The patient is ready for discharge. Medical Decision Nursing notes reviewed. Ancillary studies and prior records reviewed. The patient is a 27 year old white female with a past medical history of anxiety , a brain tumor, depression, drug abuse who presents to the ED with a cc of constant cough and congestion beginning a week ago. Differential diagnosis: Etiologies such as viral syndrome, otitis, pharyngitis, pneumonia, influenza, meningitis, urinary tract infection, sepsis, bacteremia, as well as others were entertained. Patient was seen and evaluated the bedside. Patient is a 27-year-old at 15 weeks by last documented ultrasound presents with a chief complaint of some upper respiratory type symptoms and cough. The patient has been taking some Delsym as well as some Tessalon Perles. Patient did talk to her PCP in OB who referred her here. Patient did have a recent 14 week ultrasound which was normal. The patient does not complain of any nausea, vomiting, or abdominal discomfort. Patient also denies any vaginal bleeding. Patient did have a chest x-ray completed and was given medications. The patient was counseled on smoking cessation. Given the patient's I discussed that we are limited with the types of medications he can receive. The patient did receive DuoNeb, Tessalon Perles, Symbicort Cepacol, DuoNeb. Upon reassessment the patient was feeling mildly improved. Patient denies any lower extremity swelling or calf pain. Patient denies any shortness of breath or chest pain. She was intermittently tachycardic which may be related to some dehydration as well as infectious symptoms or albuterol. I believe less likely something like PE. Chest x-ray was negative. Patient was told to continue smoking cessation and continue [id number] type treatments. Patient was given strict follow-up, discharge, and return precautions. All questions were answered. Patient was deemed suitable for outpatient follow-up at this time. Patient agreed with the plan of care and was safely discharged home. Medication Reconcilliation Current Medication List: was personally reviewed by me Blood Pressure Screening Patient's blood pressure: Normal blood pressure Blood pressure disposition: Did not require urgent referral Impression Primary Impression: Acute bronchitis Additional Impressions: Cough Encounter for smoking cessation counseling Scribe Attestation The scribe's documentation has been prepared under my direction and personally reviewed by me in its entirety. I confirm that the note above accurately reflects all work, treatment, procedures, and medical decision making performed by me. Departure Information Dispostion Home / Self-Care Referrals Ho Benedict M.D. (PCP) Forms HOME CARE DOCUMENTATION FORM, IMPORTANT VISIT INFORMATION Patient Instructions Bronchitis Acute Dc, Deep Coughing, My [facility], Techniques Cough Airway Clear Additional Instructions Please return to the emergency department if you have worsening or recurrent symptoms not amenable to at-home treatment. Please call for a follow-up appointment with her primary care physician. Please take your medications as prescribed. If you have other concerns and/or complaints please feel free to also call your primary care physician's office or return the ED for further evaluation, management, and treatment. You were found to have an elevated blood pressure today (>120 sytolic or >90 diastolic). Per medicare guidelines, you need to follow up with this blood pressure screening with your Primary Care Physician (PCP). For a new PCP call [phone]. You received narcotic or benzodiazepene medication while in the emergency room today. This is an addictive medication that may cause drowziness as well as constipation. Do not drive, operate heavy machinery, or drink alcohol under the influence of this medication. You may take tylenol 1000 mg every 6 hours as needed for pain/fever unless told by your physician to not take it or have liver problems. You may continue to use [id number] type medications for your cough. Please use the inhaler 2 puffs every 4 hours the first day, then 2 puffs every 6 hours second day, 1 puff every 4 hours the third day, and then 1 puff every 6 hours the fourth day. You may then use as needed. Make sure to use your inhaler with a spacer when you use it. Take your medications as prescribed. If taking an antibiotic consider taking a probiotic and/or eating yogurt, but at the least, please take with food as it can cause upset stomach. You have been examined and treated today on an emergency basis only. This is not a substitute for, or an effort to provide, complete comprehensive medical care. It is impossible to recognize and treat all injuries or illnesses in a single emergency department visit. It is therefore important that you follow up closely with [facility], your PCP, and/or your specialist(s). Call as soon as possible for an appointment. Thank you for your time and consideration. I look forward to speaking with you again soon. Please don't hesitate to call us if you have any questions. Problem Qualifiers Primary Impression: Acute bronchitis Bronchitis organism: unspecified organism Qualified Codes: J20.9 - Acute bronchitis, unspecified
[2018-03-14] MEDS ORDERED: BENZONATATE 100MG CAP PO ONE (14:00)
--- NOTE | 2018-03-14 14:06 | DIAGNOSTIC IMAGING REPORT ---
CHEST ONE VIEW PORTABLE HISTORY: cough congestion; + COMPARISON: Chest 01/27/2017. FINDINGS: The lungs are clear. The heart is normal in size. No pleural effusions. No pneumothorax. Right-sided shunt catheter is again noted. Prior cholecystectomy. IMPRESSION: No acute process. Electronically signed by: Harrison Washington M.D. 03/14/2018 2:05 PM Dictated Date/Time: 03/14/2018 2:02 PM
[2018-03-14 15:49] VITALS: BP 124/84; PULSE 108; O2SAT 97
== END 2018-03-14 15:49 | disposition home or self-care (01) ==
LOC: C.EDB 13:28 → C.EDC 15:49
DX: O99.53 Diseases of the respiratory system complicating the puerperium (principal); O09.291 Supervision of pregnancy with other poor reproductive or obstetric history, first trimester; J20.9 Acute bronchitis, unspecified; Z3A.15 15 weeks gestation of pregnancy; R00.0 Tachycardia, unspecified; J45.909 Unspecified asthma, uncomplicated; F41.8 Other specified anxiety disorders; F17.200 Nicotine dependence, unspecified, uncomplicated; Z87.898 Personal history of other specified conditions; Z79.899 Other long term (current) drug therapy; Z91.018 Allergy to other foods; Z88.6 Allergy status to analgesic agent; Z88.8 Allergy status to other drugs, medicaments and biological substances